=== PATIENT | male | born 1965 | race Caucasian/White ===

== ENCOUNTER 2019-09-28 15:48 | Emergency (ER) | payer BC ==
[~2019-09-28] VITALS: Ht 187.9 cm; Wt 108.9 kg
[~2019-09-28 15:48] MED LIST: ADVIL200 M1 PO; ATENOLOL25 MG PO; DICLOFENAC POTA50 MG PO; FISH OIL500 M1 PO; HYDR12.5C PO; MAGNESIUM250 M1 PO; MOTRIN600 MG PO; NAPROSYN500 MG PO; NORCO 325 MG-51 TAB PO; NORFLEX100 MG PO; PERCOCET 325 MG1 TA2 PO; PERCOCET 325 MG1 TA7 PO; PRILOSEC10 MG/Pack PO; SILVADENE1% TP; VICODIN 5/500 505 MG PO; VITAMIN D32000 UNI1 PO
[2019-09-28] MEDS ORDERED: PREDNISONE50 MG PO (18:21)
== END 2019-09-28 18:39 | disposition home or self-care (01) ==
LOC: ED 15:48
DX: S86.911A Strain of unspecified muscle(s) and tendon(s) at lower leg level, right leg, initial encounter (principal); Z88.8 Allergy status to other drugs, medicaments and biological substances; Z79.899 Other long term (current) drug therapy; Z90.49 Acquired absence of other specified parts of digestive tract; Z96.651 Presence of right artificial knee joint; X58.XXXA Exposure to other specified factors, initial encounter; Y93.89 Activity, other specified; Y92.096 Garden or yard of other non-institutional residence as the place of occurrence of the external cause; Y99.8 Other external cause status

== ENCOUNTER 2020-08-15 10:42 | Emergency (ER) | payer OTHER ==
[~2020-08-15] VITALS: Ht 187.9 cm; Wt 113.4 kg
[~2020-08-15 10:42] MED LIST changes: +PREDNISONE50 MG PO
[2020-08-15] MEDS ORDERED: PREDNISONE20 M1 PO (12:59)
== END 2020-08-15 13:14 | disposition home or self-care (01) ==
LOC: ED 10:42
DX: M25.811 Other specified joint disorders, right shoulder (principal); Z88.8 Allergy status to other drugs, medicaments and biological substances; Z79.899 Other long term (current) drug therapy; Z90.49 Acquired absence of other specified parts of digestive tract; Z98.890 Other specified postprocedural states

== ENCOUNTER 2020-08-28 08:54 | Emergency (ER) | payer OTHER ==
[~2020-08-28] VITALS: Wt 113.4 kg
[~2020-08-28 08:54] MED LIST changes: +PREDNISONE20 M1 PO
== END 2020-08-28 10:35 | disposition home or self-care (01) ==
LOC: ED 08:54
DX: M25.511 Pain in right shoulder (principal); Z88.8 Allergy status to other drugs, medicaments and biological substances; Z79.899 Other long term (current) drug therapy; Z98.890 Other specified postprocedural states; Z96.651 Presence of right artificial knee joint; Z90.49 Acquired absence of other specified parts of digestive tract